=== PATIENT | female | born 1940 | race Caucasian/White ===

== ENCOUNTER 2021-07-24 23:01 | Observation (INO) | payer OTHER ==
[2021-07-24 23:22] VITALS: TEMP 97.8; BMI 30.8
[2021-07-25 01:15] LABS: HEMATOCRIT 40.6 % (32.4-45.2); HEMOGLOBIN 13.5 GM/dL (10.7-15.3); MCHC 33.3 g/dl (32.0-36.0); MEAN CELL VOLUME 93.2 fl (80-96); MEAN PLT VOLUME 8.2 fl (7.5-11.1); PLATELET COUNT 308 10^3/uL (134-434); RBC 4.36 M/mm3 (3.60-5.2); RDW 13.2 % (11.6-15.6)
[2021-07-25 01:37] LABS: CALCIUM 9.1 mg/dL (8.5-10.1)
[2021-07-25 01:38] LABS: ALBUMIN 3.5 g/dl (3.4-5.0); BLOOD UREA NITROGEN 23.9 mg/dL (7-18)
[2021-07-25 01:41] LABS: CREATININE 1.1 mg/dL (0.55-1.3)
[2021-07-25 01:42] LABS: BILIRUBIN,TOTAL 0.4 mg/dL (0.2-1); TOT PROT 7.4 g/dl (6.4-8.2)
[2021-07-25 01:43] LABS: ACTIVATED PTT 28.2 SECONDS (25.2-36.5); INR 1.01 (0.83-1.09); PROTHROMBIN TIME (PATIENT) 11.6 SEC (9.7-13.0)
[2021-07-25 01:45] LABS: N-TERMINAL BNP 343.9 pg/ml (5-450)
[2021-07-25] MEDS ORDERED: ASPIRIN 81 MG CHEWABLE TABLETS PO ONE (02:51)
[2021-07-25] MEDS ORDERED: POLYETHYLENE GLYCOL (HEALTHYLAX) 3350 17 GM PACKET PO PRN (03:00)
[2021-07-25] MEDS ORDERED: ACETAMINOPHEN 325 MG TABLET (FP) PO PRN (03:00)
[2021-07-25] MEDS ORDERED: ASPIRIN 81 MG CHEWABLE TABLETS ONE (03:20)
[2021-07-25] MEDS ORDERED: VALSARTAN 80 MG TABLET ONE (08:13)
[2021-07-25] MEDS ORDERED: ENOXAPARIN NA (PORCINE) 40 MG/0.4 ML DISP.SYRIN SQ ONE (08:13)
[2021-07-25] MEDS ORDERED: ASPIRIN 325 MG TABLET PO SCH ×2 (10:00)
[2021-07-25] MEDS ORDERED: amLODIPine BESYLATE 10 MG TABLET (FP) PO SCH (10:00)
[2021-07-25] MEDS ORDERED: VALSARTAN 160 MG TABLET PO SCH (10:00)
[2021-07-25] MEDS ORDERED: INDAPAMIDE 2.5 MG TABLET PO SCH ×2 (10:00)
[2021-07-25] MEDS ORDERED: ENOXAPARIN NA (PORCINE) 40 MG/0.4 ML DISP.SYRIN SQ SCH (10:00)
[2021-07-25 15:24] VITALS: BP 154/67; PULSE 78
[2021-07-25] MEDS ORDERED: ATORVASTATIN CA 10 MG TABLET (FP) PO SCH (22:00)
[2021-07-26] MEDS ORDERED: ASPIRIN 325 MG TABLET PO SCH (10:00)
== END 2021-07-25 18:48 | disposition left against medical advice (07) ==
LOC: JER 23:01 → JERBED 07-25 02:50 → J4W 07-25 16:34
PROVIDERS: ADMIT Internal Medicine; ATTEND Family Medicine
PROC: 3E023GC Introduction of Other Therapeutic Substance into Muscle, Percutaneous Approach (ICD-10-PCS; principal; 2021-07-25)
DX: I25.10 Atherosclerotic heart disease of native coronary artery without angina pectoris (principal); I11.9 Hypertensive heart disease without heart failure; E78.5 Hyperlipidemia, unspecified; E66.9 Obesity, unspecified; Z68.30 Body mass index [BMI] 30.0-30.9, adult; Z86.79 Personal history of other diseases of the circulatory system; Z86.39 Personal history of other endocrine, nutritional and metabolic disease; R94.31 Abnormal electrocardiogram [ECG] [EKG]; R07.9 Chest pain, unspecified; Z85.3 Personal history of malignant neoplasm of breast
CPT/HCPCS: 36415; 71045-TC-FY; 71275-TC; 80053; 83880; 84484; 85027; 85379; 85610; 85730; 93005; 93010; 96372; 99285-25; C9803; G0378; Q9967; U0003; U0005